=== PATIENT | male | born 1945 | race Caucasian/White ===

== ENCOUNTER 2016-11-10 21:52 | Inpatient (IN) | payer SELFPAY ==
[~2016-11-10] VITALS: Ht 172.7 cm; Wt 78.1 kg
[2016-11-10] MEDS ORDERED: NITROGLYCERIN OINT 1GM/INCH UDPKT TD ONE (22:00)
[2016-11-10] MEDS ORDERED: NITROGLYCERIN 50MG PREMIX 250 ML IV ONE (22:00)
[2016-11-10] MEDS ORDERED: FUROSEMIDE 40MG/4ML VIAL IV ONE (22:00)
[2016-11-10 22:44] LABS: HEMATOCRIT. 34.8 % (42.0-52.0); HEMOGLOBIN. 11.6 g/dL (14.0-18.0); MEAN CORPUSCULAR HEMOGLOBIN 31.3 pg (28.0-32.0); MEAN CORPUSCULAR VOLUME 93.8 fL (80.0-94.0); MEAN PLATELET VOLUME 9.2 fl (7.4-10.4); PLATELET 180 x1000/uL (130-400); RED BLOOD CELL COUNT 3.71 mill/uL (4.7-6.1); RED CELL DISTRIBUTION WIDTH 13.7 % (11.6-14.6)
[2016-11-10 22:51] LABS: INR 2.8; PROTHROMBIN TIME 28.8 sec
[2016-11-10 23:01] LABS: CARBON DIOXIDE 27 mEq/L (21-32); CHLORIDE 99 mEq/L (98-107); TROPONIN I 0.06 ng/mL (0.00-0.04)
[2016-11-10 23:21] LABS: PLATELET ESTIMATE NORMAL
[2016-11-11] MEDS ORDERED: GUAIFENESIN 200MG/10ML SUGAR FREE UDC PO PRN
[2016-11-11] MEDS ORDERED: ACETAMINOPHEN 650MG SUPP PR PRN
[2016-11-11] MEDS ORDERED: DOCUSATE SODIUM 100MG CAPSULE PO PRN
[2016-11-11] MEDS ORDERED: HYDROCODONE/ACETAMINOPHEN 5/325MG TABLET PO PRN
[2016-11-11] MEDS ORDERED: CLONIDINE 0.1MG TABLET PO PRN
[2016-11-11] MEDS ORDERED: ACETAMINOPHEN 325MG TABLET PO PRN
[2016-11-11] MEDS ORDERED: NA PHOS,M-B/NA PHOS,DI-BA ENEMA 118ML PR PRN
[2016-11-11] MEDS ORDERED: ONDANSETRON HCL 4MG/2ML VIAL IV PRN
[2016-11-11] MEDS ORDERED: ACETAMINOPHEN 650MG/20.3ML UDC GT PRN
[2016-11-11] MEDS ORDERED: INSULIN REGULAR (HUMULIN R) 300UNITS/3ML IV ONE
[2016-11-11] MEDS ORDERED: IPRATROPIUM/ALBUTEROL 0.5-3(2.5)MG/3ML NEB INH PRN
[2016-11-11] MEDS ORDERED: DEXTROSE 50% WATER 50ML SYRINGE IV PRN
[2016-11-11] MEDS ORDERED: DIPHENHYDRAMINE 50MG/ML VIAL IV PRN
[2016-11-11] MEDS ORDERED: MAGNESIUM/ALUMINUM HYDROXIDE/SIMETHICONE 30ML UDC PO PRN
[2016-11-11 03:20] LABS: CLARITY URINE CLEAR (CLEAR); COLOR URINE YELLOW (YELLOW); GLUCOSE URINE 3+ (NEGATIVE); KETONES URINE NEGATIVE (NEGATIVE); LEUKOCYTE ESTERASE URINE NEGATIVE (NEGATIVE); NITRITE URINE NEGATIVE (NEGATIVE); OCCULT BLOOD URINE TRACE (NEGATIVE); PH URINE 6.5 (4.5-8.0); PROTEIN URINE 1+ (NEGATIVE); SPECIFIC GRAVITY URINE 1.024 (1.005-1.030)
[2016-11-11 03:37] LABS: *AMPHETAMINES SCREEN URINE NEGATIVE (NEGATIVE); *BARBITURATES SCREEN URINE NEGATIVE (NEGATIVE); *BENZODIAZEPINES SCREEN URINE NEGATIVE (NEGATIVE); *COCAINE SCREEN URINE NEGATIVE (NEGATIVE); CANNABINOID URINE SCREEN NEGATIVE (NEGATIVE); METHADONE URINE SCREEN NEGATIVE (NEGATIVE); OPIATES URINE SCREEN NEGATIVE (NEGATIVE); PHENCYCLIDINE URINE SCREEN NEGATIVE (NEGATIVE)
[2016-11-11 04:24] VITALS: BP 117/56
[2016-11-11 04:52] VITALS: BP 117/55
[2016-11-11] MEDS ORDERED: LOPRESSOR (05:51)
[2016-11-11] MEDS ORDERED: COUMADIN (05:52)
[2016-11-11] MEDS ORDERED: DIGOXIN (05:52)
[2016-11-11] MEDS ORDERED: OMEPRAZOLE (05:52)
[2016-11-11] MEDS ORDERED: SODIUM CHLORIDE 0.9% INJ 3ML FLUSH IVF SCH (06:00)
[2016-11-11] MEDS ORDERED: METFORMIN (06:34)
[2016-11-11] MEDS ORDERED: ASPI-1159 PO (06:34)
[2016-11-11] MEDS ORDERED: AMLODIPINE (06:34)
[2016-11-11] MEDS ORDERED: LASIX (06:34)
[2016-11-11] MEDS: BLOOD SUGAR DIAGNOSTIC STRIP TEST SCH ×2 (06:35→11:30)
[2016-11-11] MEDS: INSULIN LISPRO 100 UNITS/ML SUBCUT SCH ×2 (07:48→11:57)
[2016-11-11 08:00] VITALS: BP 125/88
[2016-11-11 08:14] LABS: BASOPHILS % 0.3 % (0.0-2.0); EOSINOPHILS % 0.2 % (0.0-5.0); HEMATOCRIT. 30.6 % (42.0-52.0); HEMOGLOBIN. 10.5 g/dL (14.0-18.0); LYMPHOCYTES % 15.8 % (20.0-50.0); MEAN CORPUSCULAR HEMOGLOBIN 31.5 pg (28.0-32.0); MEAN CORPUSCULAR VOLUME 92.2 fL (80.0-94.0); MEAN PLATELET VOLUME 9.2 fl (7.4-10.4); MONOCYTES % 4.3 % (2.0-8.0); NEUTROPHILS % 79.4 % (40.0-76.0); PLATELET 152 x1000/uL (130-400); RED BLOOD CELL COUNT 3.32 mill/uL (4.7-6.1); RED CELL DISTRIBUTION WIDTH 13.4 % (11.6-14.6)
[2016-11-11 08:40] LABS: CHLORIDE 101 mEq/L (98-107)
[2016-11-11 08:51] LABS: CARBON DIOXIDE 30 mEq/L (21-32); HDL CHOLESTEROL 40 mg/dL (40-59); LDL CHOLESTEROL 42 mg/dL (5-100); TROPONIN I 0.09 ng/mL (0.00-0.04)
[2016-11-11] MEDS ORDERED: FUROSEMIDE 40MG/4ML VIAL IV SCH ×2 (09:00)
[2016-11-11 10:00] VITALS: BP 124/80
[2016-11-11 12:00] VITALS: BP 119/81
== END 2016-11-11 12:23 | disposition left against medical advice (07) | DRG 133 ==
LOC: ER 21:59 → 3WST 23:57 → ENRESERV 11-11 03:02
PROVIDERS: ADMIT Family Medicine; ATTEND Family Medicine
PROC: 5A09357 Assistance with Respiratory Ventilation, Less than 24 Consecutive Hours, Continuous Positive Airway Pressure (ICD-10-PCS; principal; 2016-11-10)
DX: J96.00 Acute respiratory failure, unspecified whether with hypoxia or hypercapnia (principal); D68.9 Coagulation defect, unspecified; E11.65 Type 2 diabetes mellitus with hyperglycemia; I11.0 Hypertensive heart disease with heart failure; I50.9 Heart failure, unspecified; E44.1 Mild protein-calorie malnutrition; D53.9 Nutritional anemia, unspecified; I25.10 Atherosclerotic heart disease of native coronary artery without angina pectoris; E66.9 Obesity, unspecified; Z53.21 Procedure and treatment not carried out due to patient leaving prior to being seen by health care provider; I48.91 Unspecified atrial fibrillation; Z79.01 Long term (current) use of anticoagulants; Z86.73 Personal history of transient ischemic attack (TIA), and cerebral infarction without residual deficits; Z68.26 Body mass index [BMI] 26.0-26.9, adult
CPT/HCPCS: 36415; 71010; 80053; 80061; 80305; 81001; 82962; 83036; 83880; 84484; 85025; 85610; 87086; 93005; 94660; 96374; 96375; 99291; J1815; J1940